=== PATIENT | female | born 1985 | race Caucasian/White ===

== ENCOUNTER → 2018-01-14 | Outpatient (CLI) | payer BC ==
--- NOTE | 2018-01-14 16:32 | RAD ---
EXAM DESCRIPTION: Barium Swallow: Rad-Fluoroscopy. CLINICAL HISTORY: GASTROESOPHAGEAL REFLUX DISEASE COMPARISON: None TECHNIQUE: The patient swallowed barium pill with water. The patient swallowed gas-producing granules, water, and heavy density barium under fluoroscopic visualization. The images were obtained with the patient standing and horizontal.. Patient drank medium density barium through a straw in the semi-prone position. 79 fluoroscopic cine loop images. 9 static fluoroscopic images. Total fluoroscopy time was 3.2 minutes. DAP: 448 mGy. FINDINGS: Menisci patient swallowed the barium pill with water, there was rapid transit into the pill stopped just above the gastroesophageal junction. After 4 swallows of water, the pill entered the stomach. Oropharynx and larynx are grossly normal with no penetration or aspiration. No additional swallows needed. After initial swallowing, a gas-filled hiatal hernia is noted with reflux of gas into the mid and distal esophagus. Primary esophageal wave is unremarkable. With patient supine and in horizontal position, there is spontaneous reflux above the level of the ferny of the trachea. Reflux is also elicited by rolling, no cerebral maneuver, and coughing. Hiatal hernia enlarges. Schatzki's ring is also present. No mass effect on the esophagus or stomach. No gross mucosal lesions in the stomach. No gastroduodenal obstruction. IMPRESSION: Sliding gastric hiatal hernia mild to moderate in size. Spontaneously and with maneuvers, there is significant gastroesophageal reflux. No mass effect on the esophagus or stomach. Electronically signed by: Girish Graf MD 01/14/2018 4:31 PM CDT
== END ==
LOC: YCFC.O 09:11
PROVIDERS: ATTEND Nurse Practitioner Family
DX: K21.9 Gastro-esophageal reflux disease without esophagitis (principal); K44.9 Diaphragmatic hernia without obstruction or gangrene